=== PATIENT | female | born 1960 | race Caucasian/White ===

== ENCOUNTER 2024-03-09 07:31 | Outpatient (OUT) | payer OTHER, SELFPAY ==
[2024-03-09 10:54] LABS: Estimated Average Glucose 105 mg/dL; Glycohemoglobin A1C 5.3 % (4.5-6.2)
[2024-03-09 11:39] LABS: Chol HDL Ratio 3.5; Cholesterol 176 mg/dL (<=200); Free T3 2.66 pg/mL (2.18-3.98); HDL Cholesterol 50 mg/dL (40-60); Thyroid Stimulating Hormone 0.139 uIU/mL (0.358-3.740); Triglycerides 95 mg/dL (<=150)
[2024-03-10 13:11] LABS: Insulin 19.1 uIU/mL (2.6-24.9)
== END 2024-03-09 07:32 | disposition home or self-care (01) ==
LOC: LAB 07:34
PROVIDERS: PCP Nurse Practitioner Family; Visit Provider Nurse Practitioner Family
DX: Z00.00 Encounter for general adult medical examination without abnormal findings (principal)
CPT/HCPCS: 36415; 80061; 82306; 83036; 83525; 84436; 84443; 84481